=== PATIENT | female | born 1995 | race Two or more races ===

== ENCOUNTER 2024-11-16 19:59 | Emergency (ER) | payer MEDICAID, OTHER ==
[~2024-11-16] VITALS: Ht 175.3 cm; Wt 77.1 kg
[2024-11-16] MEDS ORDERED: IBUP1TAB5 PO (20:28)
[2024-11-16] MEDS ORDERED: BACDST PO (20:28)
--- NOTE | 2024-11-16 20:29 | ED.PDOC ---
History of Present Illness(SKN HPI Comments This is a 29 year old female presenting to the ED with chief complaint of spider bite. Patient reports that she had previously been bitten by a spider on her left arm last week, receiving a prescription for Cephalexin, Benadryl and Ibuprofen which she has been taking. Patient relays that she then was bitten by another spider on her right arm 4 days ago, but today around 1600, she began to experience numbness and tingling to her whole right arm along with associated pain and swelling around the bite site extending down to her fingers. Patient states she is unable to make a fist due to the pain and swelling. Patient denies any discharge, bleeding, weakness, facial swelling, urticaria, or SOB. Chief Complaint: Upper Extremity Time Seen by MD: 20:26 History of Present Illness: Nurses Notes, Medications, Allergies Allergies: Coded Allergies: Penicillins (Verified Allergy, Unknown, 11/16/24) Home Meds Active Scripts Ibuprofen Micronized (Ibuprofen) 600 Mg Tab, 600 MG PO Q6HP PRN, #30 TAB prn fever or pain Prov:BRENDA PULIDO MD 11/16/24 Sulfamethoxazole W/Trimethopri (Bactrim Ds Tablet) 1 Tab Tb, 1 TAB PO BID for 7 Days, #14 TAB Prov:BRENDA PULIDO MD 11/16/24 Information Source: Patient, Relative (Mother) Mode of Arrival: Ambulatory Severity: Moderate Timing: Days Duration: Since onset Prehospital treatment: None Location: Arm Mechanism: Spider Developed: Other (numbness, tingling, pain, swelling) Occurence: Outdoors Object: None Condition of Object: None Retained Foreign Body: No Wound Type: Puncture Immunization Status of Animal: NA Tetanus: UTD History of: None Past Medical History PAST MEDICAL HISTORY: Denies Surgical History: Denies all surgeries LEGAL COORDINATOR History: No Pertinent LEGAL COORDINATOR History Family History Family History: Reviewed,noncontributory to illness Social History Smoker: Non-Smoker Alcohol: Denies ETOH Use Drugs: Denies Drug Use Lives In: Home Constitutional: denies: chills, diaphoresis, fatigue, fever, malaise, sweats, weakness, others EENTM: denies: blurred vision, double vision, ear bleeding, ear discharge, ear drainage, ear pain, ear ringing, eye pain, eye redness, hearing loss, mouth pain, mouth swelling, nasal discharge, nose bleeding, nose congestion, nose pain, photophobia, tearing, throat pain, throat swelling, voice changes, others Respiratory: denies: cough, hemoptysis, orthopnea, SOB at rest, shortness of breath, SOB with excertion, stridor, wheezing, others Cardiovascular: denies: chest pain, dizzy spells, diaphoresis, Dyspnea on exertion, edema, irregular heart beat, left arm pain, lightheadedness, palpitations, PND, syncope, others Gastrointestinal: denies: abdomen distended, abdominal pain, blood streaked bowels, constipated, diarrhea, dysphagia, difficulty swallowing, hematemesis, melena, nausea, poor appetite, poor fluid intake, rectal bleeding, rectal pain, vomiting, others Genitourinary: denies: abnormal vagina bleeding, burning, dyspareunia, dysuria, flank pain, frequency, hematuria, incontinence, pain, , vagina discharge, urgency, others Neurological: reports: numbness, tingling; denies: dizziness, fainting, headache, left sided numbness, left sided weakness, paresthesia, pre-existing deficit, right sided numbness, right sided weakness, seizure, speech problems, tremors, weakness, others Musculoskeletal: reports: others (Pain and swelling to right fingers); denies: back pain, gout, joint pain, joint swelling, muscle pain, muscle stiffness, neck pain Integumetry: reports: others (Spider bite to right arm); denies: bruises, change in color, change in hair/nails, dryness, laceration, lesions, lumps, rash, wounds Allergic/Immunocompromised: denies: Difficulty Healing, Frequent Infections, Hives, Itching, others Hematologic/Lymphatic: denies: anemia, blood clots, easy bleeding, easy bruising, swollen glands, others Endocrine: denies: excessive hunger, excessive sweating, excessive thirst, excessive urination, flushing, intolerance to cold, intolerance to heat, unexplained weight gain, unexplained weight loss, others Psychiatric: denies: anxiety, bipolar disorder, depression, hopeless, panic disorder, schizophrenia, sleepless, suicidal, others All Other Systems: Reviewed and Negative Physical Exam General Appearance: No Apparent Distress HEENT: Other (Pupils and face symmetric. Moist mucous membranes.) Neck: Full Range of Motion, Normal Inspection Respiratory: Lungs Clear, No Accessory Muscle Use, No Respiratory Distress, Normal Breath Sounds Cardiovascular: No JVD, Regular Rate/Rhythm Breast Exam: Deferred Gastrointestinal: Non Tender, Soft Genitalia: Deferred Pelvic: Deferred Rectal: Deferred Extremities: Other (Subcentimeter punctate papular lesion on the proximal right upper extremity with mild surrounding soft tissue induration, erythema and tenderness. No significant right upper extremity edema. Proximal Left upper extremity approximate 1 cm punctate lesion without tenderness or edema.) Neurologic: Alert (Oriented x4), Normal Affect, Normal Mood, Other (Ambulatory) Cerebellar Function: NOT DONE Reflexes: NOT DONE Skin: Dry, Warm Lymphatic: NOT DONE Was a procedure done? Was a procedure done?: No Differential Diagnosis (INTG) Differential Diagnosis: Cellulitis, Insect Envenomation, Other (Allergic reaction) X-Ray, Labs, Meds, VS Vital Signs Date Time Temp Pulse Resp B/P (MAP) Pulse Ox O2 Delivery O2 Flow Rate FiO2 11/16/24 20:02 98.2 70 16 122/58 97 98.2 X-Ray, Labs, Meds, VS Comment 29-year-old female with no significant past medical history complaining of pain, swelling and numbness/tingling of her right hand after sustaining a spider bite on her right upper extremity Vitals remarkable for BP 122/58 Exam remarkable for an old-appearing papular lesion on the left upper extremity and a more recent appearing subcentimeter papular lesion on the proximal right upper extremity with surrounding mild erythema, induration and tenderness. Rhythm strip independently interpreted by me: Sinus rhythm, rate 70, no ectopy. Patient treated with the following in the ED: Benadryl 25 mg IM, ibuprofen 600 mg p.o. On re-evaluation, pain has improved and vitals were stable. Patient appears stable for discharge with close outpatient follow-up with her primary doctor. Advised to continue Keflex until finished and diphenhydramine as needed for allergic type symptoms, redness or swelling. Rx Bactrim DS, ibuprofen Time of 1ST Reevaluation: 20:35 Reevaluation 1ST: Unchanged Patient Education/Counseling: Diagnosis, Treatment Family Education/Counseling: Diagnosis, Treatment SEPSIS Sepsis Screen Date sepsis recognized/suspect: Nov 16, 2024 Time Sepsis recognized/suspect: 2006 Recent Procedure: No On Antibiotic Therapy: No Respiratory Rate >20: No Heart Rate >90: No Temp<36 C (96.8 F) or >38.3 C: No SBP <90 or MAP <65 mmHG: No New Acute Mental Status Change: No Is the patient on CPAP, BIPAP,: No Vital Signs Date Time Temp Pulse Resp B/P (MAP) Pulse Ox O2 Delivery O2 Flow Rate FiO2 11/16/24 20:02 98.2 70 16 122/58 97 98.2 Departure 1 Departure Time of Disposition: 20:54 Impression: Primary Impression: Insect bite Additional Impressions: Allergic reaction Cellulitis, upper arm Disposition: HOME / SELF CARE / HOMELESS Condition: Stable Additional Instructions: Your symptoms may be due to a local inflammatory/allergic reaction to the spider bite and/or an early infection. I have prescribed an additional antibiotic to treat a possible infection, as well as pain medication. Continue taking diphenhydramine as needed for inflammatory type symptoms. Follow-up with your primary doctor in 1-2 days for recheck. Return to ER sooner for persistent or worsening symptoms. e-Prescriptions Ibuprofen Micronized (Ibuprofen) 600 Mg Tab 600 MG PO Q6HP PRN, #30 TAB prn fever or pain Prov: BRENDA PULIDO MD 11/16/24 Sulfamethoxazole W/Trimethopri (Bactrim Ds Tablet) 1 Tab Tb 1 TAB PO BID for 7 Days, #14 TAB Prov: BRENDA PULIDO MD 11/16/24 Discharged With: Relative (Mother) Critical Care Note Critical Care Time?: No Stability Stability form required: No Heart Score Heart Score: Heart Score Response (Comments) Value History N/A 0 EKG N/A 0 Age N/A 0 Risk Factors N/A 0 Troponin N/A 0 Total 0 I personally scribed for BRENDA PULIDO MD ([email or web address]) on 11/16/24 at 20:29. Electronically submitted by Tony Ward ([email or web address]). BRENDA PULIDO MD Nov 16, 2024 20:29
[2024-11-16] MEDS: IBUPROFEN 600 MG TAB PO ONE (21:18)
[2024-11-16 21:19] VITALS: BP 106/63; PULSE 61; RESP 19; TEMP 97.7; O2SAT 97
[2024-11-16] MEDS: diphenhdrAMINE HCL 50 MG/1 ML VL IM ONE (21:19)
== END 2024-11-16 21:45 | disposition home or self-care (01) ==
LOC: ER 19:59
DX: T63.301A Toxic effect of unspecified spider venom, accidental (unintentional), initial encounter (principal); L03.113 Cellulitis of right upper limb; Z88.0 Allergy status to penicillin; Y92.89 Other specified places as the place of occurrence of the external cause
CPT/HCPCS: 96372; 99283; J1200